=== PATIENT | male | born 1980 ===

== ENCOUNTER 2024-02-01 01:05 | Emergency (ER) | payer MEDICAID, SELFPAY ==
[2024-02-01 01:19] VITALS: BP 188/134; PULSE 107; O2SAT 96; BMI 25.8
--- NOTE | 2024-02-01 01:22 | ED_ITS ---
HPI - Alcohol General Chief Complaint: ETOH/Substance Use Stated Complaint: ALOT OF ETOH USE PER EMS Time Seen by Provider: 02/01/24 01:18 Source: patient and EMS Mode of arrival: EMS Limitations: no limitations History of Present Illness HPI narrative: Patient with history of alcohol use homeless came here for alcohol abuse denies any active complaints says that he drinks a lot no head injury ambulatory in the ED in steady gait refusing to change or take the vitals Review of Systems Review of Systems: Yes Other (Non cooperative) [facility] Social History Social History Advance Directives: No Advance Directives Information Provided: No Physical Exam ED Vital Signs: BMI result Body Mass Index 25.8 Appearance: Alert. Oriented X3. No acute distress. Atraumatic normocephalic Eyes: PERRLA, No Nystagmus ENT: Pharynx normal. Oral Mucosa moist Neck: Normal inspection. Neck supple. CVS: Normal heart rate and rhythm. Pulses normal. Respiratory: No respiratory distress. Equal air entry bilateral, no wheezing/rales/rhonchi Abdomen: Soft and nontender. Bowel sounds are present, no mass palpable, no CVA tenderness Skin: Skin warm and dry. Normal skin color. Normal skin turgor. Extremities: No lower extremity edema. No calf tenderness Neuro: Oriented X 3. No motor deficit. Walking in steady gait Medical Decision Making Medical Decision Making MDM Narrative: Patient intoxicated but walking steady gait does not want any help refusing to stay in the ER for further management discharge patient home advised to follow with detox Discharge Plan Discharge Clinical Impression: Alcohol abuse Patient Disposition: Home, Self-Care Instructions: Abuse of Alcohol (ED) Additional Instructions: Stop drinking alcohol Discharge Date/Time: 02/01/24 01:59
--- NOTE | 2024-02-01 01:59 | PC.NURSE ---
PT left without discharge instructions
== END 2024-02-01 01:59 | disposition home or self-care (01) ==
LOC: HO.ED 01:29
PROVIDERS: Emergency Provider Internal Medicine
DX: F10.10 Alcohol abuse, uncomplicated (principal); Y90.9 Presence of alcohol in blood, level not specified
CPT/HCPCS: 99281

== ENCOUNTER 2025-05-16 09:06 | Emergency (ER) | payer SELFPAY ==
[2025-05-16] VITALS (7 sets, daily range): BP systolic 125–173; BP diastolic 66–105; PULSE 90–124; RESP 12–20; TEMP 36.4–36.8; O2SAT 96–98; BMI 28.4
--- NOTE | 2025-05-16 09:27 | ECG_ITS ---
Test Reason : OVERDOES Blood Pressure : */* mmHG Vent. Rate : 101 BPM Atrial Rate : 101 BPM P-R Int : 144 ms QRS Dur : 78 ms QT Int : 376 ms P-R-T Axes : 69 54 4 degrees QTcB Int : 487 ms Sinus tachycardia Minimal voltage criteria for LVH, may be normal variant ( Sokolow-Lewis ) T wave abnormality, consider inferior ischemia Abnormal ECG No previous ECGs available Referred By: Generic ED Physician Electronically Signed By: Luis F Ortiz
--- NOTE | 2025-05-16 09:27 | PC.NURSE ---
pt on continuous telemetry monitorng
--- NOTE | 2025-05-16 10:27 | ED.GENADULT ---
HPI - General Adult General Chief complaint: Overdose Stated complaint: OD,8MG NARCAN W/GOOD RESULT PER EMS Time Seen by Provider: 05/16/25 10:26 Source: patient, EMS, RN notes reviewed and old records reviewed Mode of arrival: EMS Limitations: no limitations History of Present Illness ED Provider: Silvia [facility] narrative: Patient is a 44-year-old male presenting to the emergency department via EMS after being found unresponsive behind a liquor store. EMS administered 8mg of [place] naloxone, and briefly assisted ventilations. Patient arrives awake, alert, and without complaint. He admits to using dope this morning which he states he bought from someone he does not typically buy drugs from. Also admits to some alcohol use last night. Denies any physical complaints. Not interested in assistance with detox. MD complaint: overdose Related Data Allergies Allergy/AdvReac Type Severity Reaction Status Date / Time shellfish derived Allergy Anaphylaxis Verified 05/16/25 09:18 Review of Systems Review of Systems: As per MDM Yes all other systems are reviewed and are negative Constitutional: Constitutional: Reports as per [facility] Social History Social History Smoked in Last 30 Days: Yes Use of substances other than those prescribed or required for medical reasons: Yes Substance Use Type: Heroin Substance Use Frequency: Occasionally Last Used Substance: Just Prior to Admission Any prior treatment program specific to substance use: No Advance Directives: No Advance Directives Information Provided: Yes Physical Exam ED Vital Signs: Vital Signs - 24 hr 05/16/25 09:15 05/16/25 09:38 05/16/25 11:57 Temperature 97.6 F 97.7 F 98.2 F Pulse Rate 105 H 99 95 Respiratory Rate 15 14 14 Blood Pressure 165/98 H 146/96 H 143/84 H Pulse Oximetry 97 96 97 Oxygen Delivery Method Room Air Room Air Room Air 05/16/25 13:59 05/16/25 14:57 Temperature 98.2 F Pulse Rate 90 99 Respiratory Rate 15 12 Blood Pressure 148/88 H 134/66 Pulse Oximetry 97 98 Oxygen Delivery Method Room Air Room Air BMI result Body Mass Index 28.4 Vital signs have been reviewed and appear to be correct. Blood pressure normal. Heart rate normal. Respiratory rate normal. Temperature normal. Oxygen saturation normal. Const General: cooperative, healthy appearing and no acute distress Orientation/consciousness: oriented to person, oriented to place, oriented to time and patient oriented x3 Limitations: no limitations HENMT Head: Yes normocephalic and Yes atraumatic Ears: external ears normal General nose exam: Normal external nose present Face and sinus: Yes face symmetric Mouth: oropharynx normal and moist mucous membranes Throat: Yes uvula midline Eyes Pupils: Equal, round and reactive pupils present Neck Neck: Yes normal visual inspection and Yes supple Resp Effort & Inspection: normal respiratory effort and able to speak in complete sentences Auscultation: clear to auscultation bilaterally Cardio Rate: regular rate Rhythm: regular rhythm Heart sounds: S1 normal heart sound present and S2 normal heart sound present GI Palpation (GI): Soft to palpation and nontender Auscultation: normoactive bowel sounds General: Yes no CVA tenderness Back/Spine/Pelvis Back: no CVA tenderness Skin General skin exam: elasticity normal and turgor normal Neuro General: oriented to person, oriented to place, oriented to time, patient oriented x3, moves all extremities, no focal motor deficits and CN's II-XI intact bilaterally Cranial nerves: Yes Equal, round and reactive pupils present Cognition (Neuro): normal cognition Extrem General: Yes full ROM, Yes no pedal edema and Yes no calf tenderness Psych Mental Status: mental status grossly normal Affect: normal affect Thought process: Normal thought process present Medications Administered Discontinued Medications Generic Name Dose Route Start Last Admin Trade Name Freq PRN Reason Stop Dose Admin Naloxone HCl 8 mg 05/16/25 15:10 05/16/25 15:39 Naloxone Hcl Nasal Take Home 4 Mg [place] NOSTRILALT 05/16/25 15:11 8 mg ONCE ONE Administration Medical Decision Making Medical Decision Making [facility] Narrative: Patient is a 44-year-old male presenting to the emergency department via EMS after being found unresponsive behind a liquor store. On exam patient is awake, A+Ox3, VS WNL, afebrile, normal neurological exam without focal deficits, physical exam findings as above after being given Narcan by EMS. Given reported symptoms and physical exam findings, initial differential includes but is not limited to drug or alcohol intoxication or withdrawal, overdose, electrolyte abnormality, cardiac arrhythmia. Labs notable for mild anemia, patient asymptomatic, no significant electrolyte abnormalities. Urine drug screen positive for opiates, fentanyl, and cocaine. Patient observed in the ED for over 7 hours without change in status, he remains awake, alert, and oriented. Will discharge with take-home naloxone. Return precautions discussed. Patient verbalized understanding of and agreement with plan. Differential Diagnosis Differential Diagnoses: The differential diagnosis associated with the presentation includes as per [facility] Admission/Observation Consideration of admission/observation: Escalation of care including admission/observation considered Patient would have been admitted to the hospital had their work up had any findings where hospital admission was appropriate and their clinical presentation warranted hospital admission. Lab Data [facility] Lab Attestation statement: I reviewed the patient's lab results. as per [facility] 05/16/25 10:48 05/16/25 10:48 Labs: Lab Results 05/16/25 Range/Units 10:48 WBC 7.6 (4.8-10.8) X10*3/uL RBC 4.67 (4.60-5.80) X10*6/uL Hgb 13.0 L (14.0-18.0) g/dl Hct 39.8 L (42.0-52.0) % MCV 85.2 (80.0-98.0) fL MCH 27.8 (27.0-33.0) pg MCHC 32.7 (31.0-36.0) g/dl RDW 14.2 (11.0-16.0) % Plt Count 265 (160-400) X10*3/uL MPV 8.6 L (9.4-12.4) fL Immature Gran % (Auto) 0.3 (0.0-0.4) % Neut % (Auto) 78.5 H (45-73) % Lymph % (Auto) 11.9 L (20-40) % [place] % (Auto) 9.1 (2-11) % Eos % (Auto) 0.1 (0-4) % Baso % (Auto) 0.1 (0-2) % Lymph # (Auto) 0.9 L (1.2-4.9) X10*3/uL [place] # (Auto) 0.7 (0.1-1.2) X10*3/uL Eos # (Auto) 0.0 (0.0-0.4) X10*3/uL Baso # (Auto) 0.0 (0.0-0.2) X10*3/uL Abs Immat Gran (auto) 0.02 (0.00-0.03) X10*3/uL Absolute Neuts (auto) 5.9 (2.0-8.3) x10*3/uL Absolute Nucleated RBC 0.000 (0.0-0.012) X10*3/uL Nucleated RBC % (auto) 0.0 (0.0-0.2) /100WBC Sodium 144 (135-145) mmol/L Potassium 3.9 (3.3-5.1) mmol/L Chloride 107 (96-108) mmol/L Carbon Dioxide 27 (22-29) mmol/L Anion Gap 14 (12-20) BUN 12 (9-16) mg/dL Creatinine 1.23 (0.5-1.4) mg/dL Estim Creat Clear Calc 77.6 Estimated GFR > 60 Random Glucose 81 (60-115) mg/dL Calcium 8.7 (8.4-10.2) mg/dL Total Bilirubin 0.3 (0.0-1.0) mg/dL AST 48 H (5-37) U/L ALT 35 (0-40) U/L Alkaline Phosphatase 107 (39-117) U/L Total Protein 7.2 (6.5-8.0) g/dL Albumin 4.4 (3.5-5.0) g/dL Urine Color Yellow Urine Appearance Clear Urine pH 6.5 (5.0-9.0) Ur Specific [place] 1.015 (1.005-1.025) Urine Protein 30 (1+) H (Neg-Trace) mg/dL Urine Glucose (UA) 100 H (Negative) mg/dL Urine Ketones Negative (Negative) mg/dL Urine Blood Negative (Negative) Urine Nitrite Negative (Negative) Ur Leukocyte Esterase Negative (Negative) Urine RBC 0-2 (0-2) /HPF Urine WBC 0-5 (0-5) /HPF Ur Squamous Epith Cells 0-2 (0-2) /HPF Urine Bacteria None Seen (None Seen) Hyaline Casts 0-2 (0-2) /LPF Urine Opiates Screen POSITIVE H (Not Detect) Ur Buprenorphine Scrn Not Detected (Not Detect) ng/mL Ur Oxycodone Screen Not Detected (Not Detect) ng/mL Urine Methadone Screen Not Detected (Not Detect) ng/mL Urine Fentanyl Screen POSITIVE H (Not Detect) Ur Barbiturates Screen Not Detected (Not Detect) Ur Phencyclidine Scrn Not Detected (Not Detect) Ur Amphetamines Screen Not Detected (Not Detect) U Benzodiazepines Scrn Not Detected (Not Detect) Urine Cocaine Screen POSITIVE H (Not Detect) U Marijuana (THC) Screen Not Detected (Not Detect) Ethyl Alcohol 17 mg/dL External Record Review External record reviewed: Inpatient record, Office record and Outpatient record Prescription Management I considered prescription management with: Other Discharge Plan Discharge Clinical Impression: Drug overdose Patient Disposition: Home, Self-Care Instructions: Naloxone (Into the nose), Adult Overdose (ED) Additional Instructions: Opiate use disorder You were seen in our Emergency Department today for treatment of opiate use disorder. You may have been dosed with medication for opiate use disorder (MOUD) in the form of suboxone or methadone. You may experience feeling some withdrawal symptoms and this is normal. The? dose in the Emergency Department is a starting dose and meant to be titrated up once you follow up with a clinic. Please do not feel discouraged, it is a process. The nurse has reviewed with you where to follow up and what information to bring with you, to continue treatment. You also may have been given naloxone (narcan) to take home with you. This medication is used to potentially treat opiate overdose. If you decide you want to stop or cut down on how much you?re using, you can call or walk into our outpatient Addiction Treatment office: [facility] (M-F 9am-5p) [address] [place] [address], [address] [phone] You may have been provided with safer injection?items, please take time to take care of YOU and your health. Use new supplies whenever possible to lessen the chances of infections and other illnesses.? ?If you need more supplies, please go [facility],? [address], [place] you can call or text to coordinate delivery of safer supplies. You were also provided a list of several treatment providers in the area.? If you experience any worsening symptoms you cannot control please return to the ED or call 911. Please follow up at your next appointment. Things to look out for are fevers, chest pain, shortness of breath, severe pain, dizziness, fainting or any other concerns. Print Language: Togolese
[2025-05-16 10:58] LABS: MANUAL DIFF FLAG NO
[2025-05-16 11:00] LABS: Basophils Percent Auto 0.1 % (0-2); Eosinophils Percent Auto 0.1 % (0-4); Hematocrit 39.8 % (42.0-52.0); Imm Gran Abs Auto 0.02 X10*3/uL (0.00-0.03); Imm Gran Pct Auto 0.3 % (0.0-0.4); Lymphocytes Absolute Auto 0.9 X10*3/uL (1.2-4.9); Lymphocytes Percent Auto 11.9 % (20-40); Mean Corpuscular HGB Conc 32.7 g/dl (31.0-36.0); Mean Corpuscular Hemoglobin 27.8 pg (27.0-33.0); Mean Corpuscular Volume 85.2 fL (80.0-98.0); Mean Platelet Volume 8.6 fL (9.4-12.4); Monocytes Absolute Auto 0.7 X10*3/uL (0.1-1.2); Monocytes Percent Auto 9.1 % (2-11); Neutrophils Absolute Auto 5.9 x10*3/uL (2.0-8.3); Neutrophils Percent Auto 78.5 % (45-73); Platelet Count 265 X10*3/uL (160-400); Red Blood Count 4.67 X10*6/uL (4.60-5.80); Red Cell Distribution Width 14.2 % (11.0-16.0); White Blood Count 7.6 X10*3/uL (4.8-10.8)
[2025-05-16 11:01] LABS: Appearance Urine Clear; Color Urine Yellow; Glucose Urine UA 100 mg/dL (Negative); Leukocyte Esterase Urine Negative (Negative); Nitrite Urine Negative (Negative); PH 6.5 (5.0-9.0); Specific Gravity - Urine 1.015 (1.005-1.025); UMIC TRIGGER UACC YES; Urine Blood Negative (Negative); Urine Ketones Negative (Negative); Urine Protein 30 (1+) mg/dL (Neg-Trace)
[2025-05-16 11:04] LABS: Bacteria Urine None Seen (None Seen); Hyaline Casts Urine 0-2 /LPF (0-2); RBC Urine 0-2 /HPF (0-2); Squamous Epithelial Cell Urine 0-2 /HPF (0-2); WBC Urine 0-5 /HPF (0-5)
[2025-05-16 11:11] LABS: Amphetamine Screen Urine Not Detected (Not Detect); Barbiturates, Urine Not Detected (Not Detect); Benzodiazepines Screen Urine Not Detected (Not Detect); Buprenorphine Scr Not Detected (Not Detect); Cannabinoid Screen Urine Not Detected (Not Detect); Cocaine Screen Urine POSITIVE (Not Detect); Fentanyl, urine POSITIVE (Not Detect); Methadone Screen, Urine Not Detected (Not Detect); Opiate Screen Urine POSITIVE (Not Detect); Oxycodone Screen Urine Not Detected (Not Detect); Phencyclidine Screen Urine Not Detected (Not Detect)
[2025-05-16 11:15] LABS: Alanine Aminotransferase 35 U/L (0-40); Albumin Level 4.4 g/dL (3.5-5.0); Alkaline Phosphatase 107 U/L (39-117); Anion Gap 14 (12-20); Aspartate Amino Transferase 48 U/L (5-37); Bilirubin Total 0.3 mg/dL (0.0-1.0); Blood Urea Nitrogen 12 mg/dL (9-16); Calcium 8.7 mg/dL (8.4-10.2); Carbon Dioxide 27 mmol/L (22-29); Chloride 107 mmol/L (96-108); Creatinine Clr Calc Pharmacy 77.6; Estimated Glomerular Filt Rate > 60; Ethanol 17 mg/dL; Glucose Random 81 mg/dL (60-115); Potassium 3.9 mmol/L (3.3-5.1); Sodium 144 mmol/L (135-145); Total Protein 7.2 g/dL (6.5-8.0)
[2025-05-16] MEDS: Naloxone HCl Nasal TAKE HOME 4 MG SPRAY 8 MG NOSTRILALT (15:39)
== END 2025-05-16 17:01 | disposition home or self-care (01) ==
PROVIDERS: Registered Nurse Emergency; Emergency Provider Emergency Medicine Emergency Medical Services
DX: R40.4 Transient alteration of awareness (principal); T50.901A Poisoning by unspecified drugs, medicaments and biological substances, accidental (unintentional), initial encounter; Y92.488 Other paved roadways as the place of occurrence of the external cause
CPT/HCPCS: 36415; 80053; 80307; 81001; 81003; 85025; 93005; 99285

== ENCOUNTER → 2025-05-16 09:27 | Outpatient (BNV) | payer SELFPAY | PROVIDERS: Emergency Provider Emergency Medicine Emergency Medical Services; Visit Provider Internal Medicine Cardiovascular Disease | DX: R00.0 Tachycardia, unspecified (principal) | CPT/HCPCS: 93010 ==